=== PATIENT | female | born 1960 | race African-American/Black ===

== ENCOUNTER 2017-09-05 11:13 | Emergency (ER) | payer BC ==
[~2017-09-05] VITALS: Ht 167.6 cm; Wt 86.2 kg
[2017-09-05] MEDS ORDERED: CIPRO XR 500 M500 MG (11:34)
[2017-09-05] MEDS ORDERED: PNEU16DI2 (11:34)
== END 2017-09-05 14:20 | disposition home or self-care (01) ==
LOC: ER 11:13
DX: L03.115 Cellulitis of right lower limb (principal)